=== PATIENT | male | born 1950 | race Caucasian/White ===

== ENCOUNTER 2021-06-30 23:51 | Inpatient (IN) | payer OTHER ==
[~2021-06-30] VITALS: Ht 177.8 cm; Wt 85.9 kg
[2021-07-01] MEDS ORDERED: ASPIRIN 81MG TABLET PO ONE
[2021-07-01] MEDS ORDERED: LABETALOL HCL VIAL 20 MG/4 ML VIAL IV ONE
[2021-07-01] MEDS ORDERED: FUROSEMIDE 40MG/4ML VIAL IV ONE
[2021-07-01 00:48] LABS: HEMATOCRIT. 42.7 % (42.0-52.0); HEMOGLOBIN. 14.3 g/dL (14.0-18.0); MEAN CORPUSCULAR HEMOGLOBIN 31.1 pg (28.0-32.0); MEAN CORPUSCULAR VOLUME 92.9 fL (80.0-94.0); MEAN PLATELET VOLUME 10.9 fl (7.4-10.4); PLATELET 174 x1000/uL (130-400); RED CELL DISTRIBUTION WIDTH 14.5 % (11.6-14.6)
[2021-07-01 00:53] LABS: CHLORIDE 105 mEq/L (98-107)
[2021-07-01 01:05] LABS: BG BASE EXCESS -1.9 mmol/L (-2.0-2.0); BG CARBOXYHEMOGLOBIN 1.9 % (0.5-1.5); BG DEOXYHEMOGLOBIN 4.5 % (0.0-5.0); BG FRACTION INSPIRED OXYGEN 100; BG HCO3 ACT 23.8 mmol/L (22.0-26.0); BG METHEMOGLOBIN 0.4 % (0.0-1.5); BG OXYGEN SATURATION 95.4 % (92.0-98.5); BG OXYHEMOGLOBIN 93.2 % (94.0-97.0); BG PH 7.351 (7.350-7.450); BG PO2 82.6 mmHg (75.0-100.0); BG SAMPLE SITE RIGHT RADIAL; BG TOTAL HEMOGLOBIN 15.1 g/dL (12.0-18.0); BG VENT MODE MASK - BIPAP
[2021-07-01 01:36] LABS: PLATELET ESTIMATE NORMAL
[2021-07-01] MEDS ORDERED: PIPERACILLIN/TAZ 3.375G PREMIX 50 ML IV NR (02:00)
[2021-07-01] MEDS ORDERED: VANCOMYCIN 1G PREMIX 200 ML IV NR (02:00)
[2021-07-01] MEDS ORDERED: CLONIDINE 0.1MG TABLET PO PRN (10:00)
[2021-07-01] MEDS ORDERED: ACETAMINOPHEN 325MG TABLET PO PRN (10:00)
[2021-07-01] MEDS ORDERED: ONDANSETRON HCL 4MG/2ML INJ IV PRN (10:00)
[2021-07-01 10:31] LABS: BG BASE EXCESS 0.7 mmol/L (-2.0-2.0); BG CARBOXYHEMOGLOBIN 0.3 % (0.5-1.5); BG HCO3 ACT 25.7 mmol/L (22.0-26.0); BG METHEMOGLOBIN 0.4 % (0.0-1.5); BG OXYHEMOGLOBIN 97.3 % (94.0-97.0); BG PCO2 42.9 mmHg (35.0-45.0); BG PH 7.396 (7.350-7.450); BG PO2 111.9 mmHg (75.0-100.0); BG SAMPLE SITE RIGHT RADIAL; BG TOTAL HEMOGLOBIN 13.2 g/dL (12.0-18.0); BG VENT MODE MASK - NRB
[2021-07-01] MEDS: FUROSEMIDE 40MG/4ML VIAL IVP SCH ×2 (10:59→17:14)
[2021-07-01] MEDS: GUAIFENESIN 200MG/10ML SUGAR FREE UDC PO SCH ×2 (10:59→17:21)
[2021-07-01] MEDS: ENOXAPARIN 40MG/0.4ML SYR SUBCUT SCH (11:00)
[2021-07-01] MEDS ORDERED: VANCOMYCIN 1250MG in DEXTROSE 5% WATER 250ML IV SCH (12:00)
[2021-07-01] MEDS: IPRATROPIUM/ALBUTEROL 0.5-3(2.5)MG/3ML NEB HHN SCH ×2 (12:01→20:52)
[2021-07-01 13:10] LABS: CHLORIDE 103 mEq/L (98-107)
[2021-07-01] MEDS ORDERED: PIPERACILLIN/TAZ 3.375G PREMIX 50 ML IV SCH (14:00)
[2021-07-01 14:30] VITALS: BP 147/92
[2021-07-01] MEDS ORDERED: GLYB1.253 MT (15:54)
[2021-07-01] MEDS ORDERED: DIVA500T3 PO (15:54)
[2021-07-01] MEDS ORDERED: BUSP10TA4 MT (15:54)
[2021-07-01] MEDS ORDERED: FERR-71 MT (15:54)
[2021-07-01 16:00] VITALS: BP 160/99
[2021-07-01 16:17] VITALS: BP 140/80
[2021-07-01] MEDS: PIPERACILLIN/TAZOBACTAM 3.375G in DEXT 5% WATER 50ML IV SCH ×2 (17:14→22:36)
[2021-07-01] MEDS: AMLODIPINE 5MG TABLET PO SCH (17:22)
[2021-07-01] MEDS ORDERED: METO100T16 PO (17:51)
[2021-07-01] MEDS ORDERED: SIRO0.5T3 PO (17:51)
[2021-07-01] MEDS ORDERED: HYDR-4134 PO (17:51)
[2021-07-01] MEDS ORDERED: LEVO125T8 PO (17:51)
[2021-07-01] MEDS ORDERED: TEMA30CA PO (17:51)
[2021-07-01] MEDS ORDERED: GLIP10TA10 PO (17:51)
[2021-07-01] MEDS ORDERED: OMEP20CA14 PO (17:51)
[2021-07-01] MEDS ORDERED: ROSU20TA2 PO (17:51)
[2021-07-01] MEDS ORDERED: PERP4TAB11 PO (17:51)
[2021-07-01] MEDS ORDERED: PRED5TAB PO (17:51)
[2021-07-01] MEDS ORDERED: TACR30OI5 TP (17:51)
[2021-07-01] MEDS ORDERED: FURO-151 PO (17:51)
[2021-07-01 17:55] LABS: CREATINE KINASE MB FRACTION 2.8 ng/mL (0.5-3.6)
[2021-07-01 18:00] VITALS: BP 115/90
[2021-07-01] MEDS ORDERED: DEXTROSE 50% WATER 50ML SYRINGE IV PRN (18:00)
[2021-07-01] MEDS ORDERED: TEMAZEPAM 15MG CAPSULE PO PRN (19:15)
[2021-07-01 20:00] VITALS: BP 155/65
[2021-07-01] MEDS: METOPROLOL TARTRATE 50MG TABLET PO SCH (20:32)
[2021-07-01] MEDS: BLOOD SUGAR DIAGNOSTIC STRIP TEST SCH (20:35)
[2021-07-01] MEDS: INSULIN LISPRO 100 UNITS/ML SUBCUT SCH (20:36)
[2021-07-01] MEDS: PREDNISONE 10MG TABLET PO SCH (20:43)
[2021-07-01 22:00] VITALS: BP 147/71
[2021-07-01 23:58] LABS: CREATINE KINASE MB FRACTION 1.7 ng/mL (0.5-3.6)
[2021-07-02] VITALS (12 sets, daily range): BP systolic 122–158; BP diastolic 67–98
[2021-07-02] MEDS: IPRATROPIUM/ALBUTEROL 0.5-3(2.5)MG/3ML NEB HHN SCH ×6 (00:46→21:30)
[2021-07-02 06:04] LABS: HEMATOCRIT. 37.5 % (42.0-52.0); HEMOGLOBIN. 12.8 g/dL (14.0-18.0); MEAN CORPUSCULAR HEMOGLOBIN 30.8 pg (28.0-32.0); MEAN CORPUSCULAR VOLUME 90.5 fL (80.0-94.0); MEAN PLATELET VOLUME 10.8 fl (7.4-10.4); PLATELET 138 x1000/uL (130-400); RED BLOOD CELL COUNT 4.15 mill/uL (4.7-6.1); RED CELL DISTRIBUTION WIDTH 14.3 % (11.6-14.6)
[2021-07-02] MEDS: FUROSEMIDE 40MG/4ML VIAL IVP SCH ×2 (06:20→18:34)
[2021-07-02] MEDS: PIPERACILLIN/TAZOBACTAM 3.375G in DEXT 5% WATER 50ML IV SCH ×3 (06:20→21:06)
[2021-07-02] MEDS: BLOOD SUGAR DIAGNOSTIC STRIP TEST SCH ×4 (07:30→21:06)
[2021-07-02] MEDS: INSULIN LISPRO 100 UNITS/ML SUBCUT SCH ×4 (08:00→21:28)
[2021-07-02] MEDS: ENOXAPARIN 40MG/0.4ML SYR SUBCUT SCH (09:33)
[2021-07-02] MEDS: LEVOTHYROXINE SODIUM 125MCG TABLET PO SCH (09:34)
[2021-07-02] MEDS: OMEPRAZOLE 20MG CAPSULE EXTENDED RELEASE PO SCH (09:34)
[2021-07-02] MEDS: DIVALPROEX SODIUM 500MG DR TABLET PO SCH (09:34)
[2021-07-02] MEDS: FERROUS SULFATE 325MG TABLET PO SCH ×2 (09:35→18:35)
[2021-07-02] MEDS: BUSPIRONE HCL 10MG TABLET PO SCH ×2 (09:35→18:34)
[2021-07-02] MEDS: AMLODIPINE 5MG TABLET PO SCH ×2 (09:35→21:05)
[2021-07-02] MEDS: PREDNISONE 10MG TABLET PO SCH (09:35)
[2021-07-02] MEDS: HYDRALAZINE HCL 25MG TABLET PO SCH ×2 (09:35→12:39)
[2021-07-02] MEDS: METOPROLOL TARTRATE 50MG TABLET PO SCH ×2 (09:36→18:34)
[2021-07-02 10:02] LABS: BG BASE EXCESS 6.2 mmol/L (-2.0-2.0); BG CARBOXYHEMOGLOBIN 1.1 % (0.5-1.5); BG DEOXYHEMOGLOBIN 3.1 % (0.0-5.0); BG FRACTION INSPIRED OXYGEN 28; BG METHEMOGLOBIN 0.3 % (0.0-1.5); BG OXYGEN SATURATION 96.9 % (92.0-98.5); BG OXYHEMOGLOBIN 95.5 % (94.0-97.0); BG PCO2 40.4 mmHg (35.0-45.0); BG PH 7.489 (7.350-7.450); BG PO2 85.1 mmHg (75.0-100.0); BG SAMPLE SITE RIGHT RADIAL; BG TOTAL HEMOGLOBIN 13.5 g/dL (12.0-18.0); BG VENT MODE NASAL CANNULA
[2021-07-02] MEDS ORDERED: SIRO2TAB PO (14:05)
[2021-07-02] MEDS ORDERED: TACR0.00 MC (14:05)
[2021-07-02 14:30] LABS: PLATELET ESTIMATE NORMAL
[2021-07-02] MEDS ORDERED: NON FORMULARY PATIENT HOME MED XX SCH (15:00)
[2021-07-02] MEDS: HYDRALAZINE HCL 50MG TABLET PO SCH (18:35)
[2021-07-02] MEDS: TACROLIMUS 1MG CAPSULE PO SCH (18:36)
[2021-07-02] MEDS: GUAIFENESIN 200MG/10ML SUGAR FREE UDC PO PRN (21:06)
[2021-07-03] VITALS (13 sets, daily range): BP systolic 124–180; BP diastolic 62–107
[2021-07-03] MEDS: IPRATROPIUM/ALBUTEROL 0.5-3(2.5)MG/3ML NEB HHN SCH ×5 (01:01→18:35)
[2021-07-03 05:44] LABS: HEMATOCRIT. 38.8 % (42.0-52.0); HEMOGLOBIN. 13.1 g/dL (14.0-18.0); MEAN CORPUSCULAR HEMOGLOBIN 30.2 pg (28.0-32.0); MEAN CORPUSCULAR VOLUME 89.5 fL (80.0-94.0); MEAN PLATELET VOLUME 11.6 fl (7.4-10.4); PLATELET 147 x1000/uL (130-400); RED BLOOD CELL COUNT 4.33 mill/uL (4.7-6.1); RED CELL DISTRIBUTION WIDTH 13.9 % (11.6-14.6)
[2021-07-03] MEDS: PIPERACILLIN/TAZOBACTAM 3.375G in DEXT 5% WATER 50ML IV SCH ×3 (05:58→22:00)
[2021-07-03] MEDS: FUROSEMIDE 40MG/4ML VIAL IVP SCH ×3 (05:58→18:11)
[2021-07-03] MEDS: BLOOD SUGAR DIAGNOSTIC STRIP TEST SCH ×4 (07:30→21:28)
[2021-07-03] MEDS: GUAIFENESIN 200MG/10ML SUGAR FREE UDC PO PRN ×2 (08:41→20:44)
[2021-07-03] MEDS: ENOXAPARIN 40MG/0.4ML SYR SUBCUT SCH (08:42)
[2021-07-03] MEDS: DIVALPROEX SODIUM 500MG DR TABLET PO SCH (08:42)
[2021-07-03] MEDS: FERROUS SULFATE 325MG TABLET PO SCH ×2 (08:42→18:07)
[2021-07-03] MEDS: BUSPIRONE HCL 10MG TABLET PO SCH ×2 (08:42→18:07)
[2021-07-03] MEDS: OMEPRAZOLE 20MG CAPSULE EXTENDED RELEASE PO SCH (08:43)
[2021-07-03] MEDS: LEVOTHYROXINE SODIUM 125MCG TABLET PO SCH (08:43)
[2021-07-03] MEDS: TACROLIMUS 1MG CAPSULE PO SCH ×2 (08:43→18:12)
[2021-07-03] MEDS: METOPROLOL TARTRATE 50MG TABLET PO SCH ×2 (08:44→18:12)
[2021-07-03] MEDS: HYDRALAZINE HCL 50MG TABLET PO SCH (08:44)
[2021-07-03] MEDS: AMLODIPINE 5MG TABLET PO SCH ×2 (08:44→21:36)
[2021-07-03] MEDS: INSULIN LISPRO 100 UNITS/ML SUBCUT SCH ×4 (08:46→21:37)
[2021-07-03] MEDS: PREDNISONE 10MG TABLET PO SCH (09:00)
[2021-07-03] MEDS ORDERED: SIROLIMUS 0.5 MG TABLET XX SCH (11:30)
[2021-07-03] MEDS: HYDRALAZINE HCL 100MG TABLET PO SCH ×2 (14:23→18:07)
[2021-07-03 19:24] LABS: PLATELET ESTIMATE NORMAL
[2021-07-04] MEDS ORDERED: PREDNISONE 5MG TABLET PO SCH (09:00)
== END 2021-07-04 00:10 | disposition short-term general hospital (02) | DRG 193 ==
LOC: ER 23:51 → MICUSO 07-01 03:25 → 5EST 07-01 15:05 → 7WST 07-03 18:50
PROVIDERS: ADMIT Internal Medicine; ATTEND Internal Medicine
PROC: 5A09357 Assistance with Respiratory Ventilation, Less than 24 Consecutive Hours, Continuous Positive Airway Pressure (ICD-10-PCS; principal; 2021-07-01)
DX: J18.9 Pneumonia, unspecified organism (principal); J96.01 Acute respiratory failure with hypoxia; I50.43 Acute on chronic combined systolic (congestive) and diastolic (congestive) heart failure; I13.0 Hypertensive heart and chronic kidney disease with heart failure and stage 1 through stage 4 chronic kidney disease, or unspecified chronic kidney disease; Z94.0 Kidney transplant status; R65.10 Systemic inflammatory response syndrome (SIRS) of non-infectious origin without acute organ dysfunction; I42.9 Cardiomyopathy, unspecified; E03.9 Hypothyroidism, unspecified; E11.22 Type 2 diabetes mellitus with diabetic chronic kidney disease; E78.00 Pure hypercholesterolemia, unspecified; E87.5 Hyperkalemia; Z20.822 Contact with and (suspected) exposure to COVID-19; F20.9 Schizophrenia, unspecified; F31.9 Bipolar disorder, unspecified; N18.9 Chronic kidney disease, unspecified; Z79.899 Other long term (current) drug therapy; Z87.891 Personal history of nicotine dependence; Z87.01 Personal history of pneumonia (recurrent)
CPT/HCPCS: 36415; 36600; 71045; 78580; 80048; 80053; 82375; 82550; 82553; 82805; 82962; 83036; 83605; 83735; 83880; 84484; 85025; 85379; 87426; 93005; 93306; 93970; 94640; 94660; 99291; J1650; J1815; J1940; J2543; J3370; J3490; J7060; J7507; J7512

== ENCOUNTER 2024-10-24 11:14 | Emergency (ER) | payer OTHER ==
[~2024-10-24] VITALS: Ht 175.3 cm; Wt 95.6 kg
[~2024-10-24 11:14] MED LIST: BUSP10TA4 MT; DIVA500T3 PO; FERR-71 MT; FURO-151 PO; GLIP10TA17 PO; HYDR25TA78 PO; LEVO125T8 PO; METO100T16 PO; OMEP20CA14 PO; PERP4TAB11 PO; PRED5TAB PO; ROSU20TA2 PO; SIRO0.5T3 PO; SIRO2TAB PO; TACR0.00 MC; TACR30OI5 TP; TEMA30CA PO
[2024-10-24 11:15] VITALS: O2SAT 98
[2024-10-24] MEDS: VANCOMYCIN 1G PREMIX 200 ML IV ONE (12:04)
[2024-10-24] MEDS: SODIUM CHLORIDE 0.9% (SEPSIS BOLUS) IV ONE (12:27)
[2024-10-24 12:31] LABS: INR 1.7
[2024-10-24 12:34] LABS: HEMATOCRIT. 43.1 % (42.0-52.0); HEMOGLOBIN. 14.5 g/dL (14.0-18.0); MEAN PLATELET VOLUME 9.6 fl (7.4-10.4); PLATELET 146 x1000/uL (130-400); RED BLOOD CELL COUNT 4.61 mill/uL (4.7-6.1); RED CELL DISTRIBUTION WIDTH 15.6 % (11.6-14.6)
[2024-10-24 12:36] LABS: CREATININE 2.4 mg/dL (0.6-1.3)
[2024-10-24 12:37] LABS: ETHANOL BLOOD < 10 mg/dL (<10); UREA NITROGEN BLOOD 25 mg/dL (9-23)
[2024-10-24 12:38] LABS: TROPONIN I HIGH SENSITIVITY 46 ng/L (3.0-53)
[2024-10-24 12:39] LABS: ASPARTATE AMINOTRANSFERASE 20 IU/L (<34); BILIRUBIN DIRECT 0.2 mg/dL (<=3.0); BILIRUBIN TOTAL 0.7 mg/dL (0.1-1.0); PROTEIN TOTAL 6.3 g/dL (6.0-8.3)
[2024-10-24] MEDS: PIPERACILLIN/TAZO 3.375G/50ML 50 ML IV ONE (12:42)
[2024-10-24 13:29] LABS: BAND% 2.0 % (1.0-6.0); EOSINOPHILS % MANUAL 1.0 % (0.0-5.0); LYMPHOCYTES % MANUAL 5.0 % (20.0-50.0); METAMYELOCYTES % 3.0 % (0-0); MONOCYTES % MANUAL 6.0 % (2.0-8.0); NEUTROPHILS % MANUAL 83.0 % (45.0-75.0); PLATELET ESTIMATE NORMAL
[2024-10-24 13:52] LABS: INFLUENZA TYPE A Presumptive Negative (Pres. Neg.)
[2024-10-24 13:53] LABS: INFLUENZA TYPE B Presumptive Negative (Pres. Neg.); RESPIRATORY SYNCYTIAL VIRUS Not Detected (Not Detectd)
[2024-10-24 15:13] LABS: TROPONIN I HIGH SENSITIVITY 87 ng/L (3.0-53)
[2024-10-24 17:33] LABS: BG BASE EXCESS -4.0 mmol/L (-2.0-3.0); BG CARBOXYHEMOGLOBIN 1.0 % (0.5-1.5); BG DEOXYHEMOGLOBIN 10.5 % (0.0-5.0); BG FRACTION INSPIRED OXYGEN 21; BG HCO3 ACT 19.4 mmol/L (21.0-28.0); BG METHEMOGLOBIN 0.2 % (0.5-1.5); BG OXYGEN SATURATION 89.4 % (94.0-98.0); BG OXYHEMOGLOBIN 88.3 % (94.0-98.0); BG PCO2 31.1 mmHg (35.0-48.0); BG PH 7.412 (7.350-7.450); BG PO2 54.7 mmHg (83.0-108.0); BG SAMPLE SITE RIGHT RADIAL; BG TOTAL HEMOGLOBIN 14.8 g/dL (13.5-17.5); BG VENT MODE ROOM AIR
[2024-10-24 18:13] VITALS: BP 127/53; PULSE 111; RESP 30; TEMP 37.3; O2SAT 98
[2024-10-24] MEDS ORDERED: IOHEXOL-350 100 ML BOTTLE ONE (23:47)
== END 2024-10-24 18:45 | disposition short-term general hospital (02) ==
LOC: ER 11:14 → EDBEDREQTM 16:13 → EDBEDREQ 16:13 → ER 18:45
DX: A41.9 Sepsis, unspecified organism (principal); E11.9 Type 2 diabetes mellitus without complications; E78.00 Pure hypercholesterolemia, unspecified; F31.9 Bipolar disorder, unspecified; I11.0 Hypertensive heart disease with heart failure; I45.10 Unspecified right bundle-branch block; I50.9 Heart failure, unspecified; I67.82 Cerebral ischemia; Z79.621 Long term (current) use of calcineurin inhibitor; Z86.73 Personal history of transient ischemic attack (TIA), and cerebral infarction without residual deficits; Z94.0 Kidney transplant status
CPT/HCPCS: 80076; 80048; 80320; 82140; 83605; 85025; 85610; 85730; 87420; 87040; 84484; 87804 ×2; 36415; 71045; 70496; 70498; 70450; 82805; 82375; 93005; 96368; 96365; 96366; 99285; 36600; Q9967; J2543; J3373; J7030; G0480